=== PATIENT | male | born 1990 | race African-American/Black ===

== ENCOUNTER 2017-02-14 20:39 | Emergency (ER) | payer OTHER ==
[~2017-02-14] VITALS: Ht 177.8 cm; Wt 86.2 kg
[~2017-02-14 20:39] MED LIST: CARVEDILOL25 MG PO; COUMADIN 5 MG TA5 MG PO; HYDROXYCHLOROQ200 M1 PO; HYZAAR 50-12.51 EACH PO; IBUPROFEN 800800 MG PO; PREDNISONE 20 M20 MG PO
[2017-02-14 21:33] LABS: URINE BILIRUBIN NEGATIVE (Negative); URINE BLOOD 1+ (Negative); URINE COLOR YELLOW; URINE GLUCOSE-RANDOM* NEGATIVE (Negative); URINE KETONES NEGATIVE (Negative); URINE LEUKOCYTES-REFLEX 2+ (Negative); URINE PROTEIN (DIPSTICK) 3+ (Negative); URINE UROBILINOGEN 0.2 E.U./dl (0.2-1.0)
[2017-02-14 21:43] LABS: CASTS None Seen /LPF (None Seen); CRYSTALS None Seen /LPF (None Seen); SQUAMOUS None Seen /LPF (0-3); URINE RBC 0-2 Rare /HPF (0-2); URINE WBC-REFLEX >25 Many /HPF (0-5)
[2017-02-14 22:43] VITALS: BP 158/110
== END 2017-02-14 21:54 | disposition home or self-care (01) ==
LOC: ER 20:39
PROVIDERS: Physician Assistant
DX: Z20.2 Contact with and (suspected) exposure to infections with a predominantly sexual mode of transmission (principal); M32.9 Systemic lupus erythematosus, unspecified; Z86.711 Personal history of pulmonary embolism

== ENCOUNTER 2018-01-28 08:46 | Emergency (ER) | payer OTHER ==
[~2018-01-28] VITALS: Ht 177.8 cm; Wt 88.5 kg
[2018-01-28 08:56] LABS: URINE BILIRUBIN NEGATIVE (Negative); URINE BLOOD 1+ (Negative); URINE CLARITY CLEAR; URINE COLOR YELLOW; URINE GLUCOSE-RANDOM* NEGATIVE (Negative); URINE KETONES NEGATIVE (Negative); URINE LEUKOCYTES-REFLEX NEGATIVE (Negative); URINE NITRITE-REFLEX NEGATIVE (Negative); URINE PROTEIN (DIPSTICK) 2+ (Negative); URINE UROBILINOGEN 0.2 E.U./dl (0.2-1.0)
[2018-01-28] MEDS ORDERED: CELLCEPT 250 M250 M1 PO (08:59)
[2018-01-28 09:06] LABS: BACTERIA-REFLEX 1-9 Few /HPF (None Seen); CASTS None Seen /LPF (None Seen); CRYSTALS None Seen /LPF (None Seen); SQUAMOUS 0-3 Few /LPF (0-3); URINE RBC 3-10 Few /HPF (0-2); URINE WBC-REFLEX 0-5 Rare /HPF (0-5)
[2018-01-28] MEDS ORDERED: ACYCLOVIR 400400 MG PO (09:13)
[2018-01-28 09:20] VITALS: BP 180/121
[2018-01-31 18:07] LABS: HSV 1 DNA Negative (Negative); HSV 2 DNA Negative (Negative)
[2018-02-02 10:32] LABS: HSV PCR SOURCE PENIS
== END 2018-01-28 09:20 | disposition home or self-care (01) ==
LOC: ER 08:46
PROVIDERS: Emergency Medicine
DX: N48.89 Other specified disorders of penis (principal); M32.9 Systemic lupus erythematosus, unspecified; Z86.711 Personal history of pulmonary embolism

== ENCOUNTER 2018-03-03 14:25 | Emergency (ER) | payer OTHER ==
[~2018-03-03] VITALS: Ht 177.8 cm; Wt 88.5 kg
[~2018-03-03 14:25] MED LIST changes: +ACYCLOVIR 400400 MG PO; +CELLCEPT 250 M250 M1 PO
[2018-03-03] MEDS ORDERED: CARVEDILOL12.5 MG PO (15:23)
[2018-03-03 15:25] VITALS: BP 180/125
== END 2018-03-03 15:29 | disposition home or self-care (01) ==
LOC: ER 14:25
DX: N48.89 Other specified disorders of penis (principal); M32.9 Systemic lupus erythematosus, unspecified

== ENCOUNTER 2018-08-11 11:00 | Inpatient (IN) | payer OTHER, BC ==
[~2018-08-11] VITALS: Ht 177.8 cm; Wt 93.0 kg
[~2018-08-11 11:00] MED LIST changes: +CARVEDILOL12.5 MG PO
[2018-08-11 11:04] VITALS: BP 194/142
[2018-08-11] MEDS ORDERED: WARFARIN SODIUM6 MG PO (11:19)
[2018-08-11] MEDS ORDERED: NYSTATIN100000 UNI SW&SWALLOW (11:20)
[2018-08-11] MEDS ORDERED: VERAPAMIL E.R240 M1 PO (11:20)
[2018-08-11] MEDS ORDERED: HYDROXYCHLOROQ200 M1 PO (11:21)
--- NOTE | 2018-08-11 12:23 | NUR ---
PROVIDER AT BEDSIDE TO TALK WITH PT.
[2018-08-11 13:03] LABS: URINE BILIRUBIN NEGATIVE (Negative); URINE BLOOD 2+ (Negative); URINE CLARITY CLEAR; URINE COLOR YELLOW; URINE GLUCOSE-RANDOM* NEGATIVE (Negative); URINE KETONES NEGATIVE (Negative); URINE LEUKOCYTES-REFLEX NEGATIVE (Negative); URINE NITRITE-REFLEX NEGATIVE (Negative); URINE PROTEIN (DIPSTICK) 2+ (Negative); URINE UROBILINOGEN 0.2 E.U./dl (0.2-1.0)
[2018-08-11 13:18] LABS: HEMATOCRIT 56.9 % (42.0-52.0); HEMOGLOBIN 18.9 gm/dL (14.0-18.0); MCH 28.6 pg (26.0-34.0); MCHC 33.3 g/dL (28.0-37.0); MCV 86.1 fL (80.0-100.0); PLATELET COUNT 178 thou/uL (150-400); RBC 6.61 mil/uL (4.50-6.00)
[2018-08-11 13:22] LABS: CALCIUM 9.3 mg/dL (8.5-10.1); CREATININE 2.1 mg/dL (0.7-1.3); POTASSIUM 3.7 mmol/L (3.5-5.1)
[2018-08-11 13:23] LABS: CASTS None Seen /LPF (None Seen); CRYSTALS None Seen /LPF (None Seen); SQUAMOUS 0-3 Few /LPF (0-3)
[2018-08-11 13:24] LABS: BACTERIA-REFLEX 1-9 Few /HPF (None Seen); URINE WBC-REFLEX 0-5 Rare /HPF (0-5)
[2018-08-11 13:28] LABS: ALBUMIN 3.5 g/dL (3.4-5.0); TOTAL BILIRUBIN 0.3 mg/dL (<0.1-1.0); TOTAL PROTEIN 6.8 g/dL (6.4-8.2)
[2018-08-11 13:55] LABS: ABSOLUTE NEUTROPHILS 2.1 thou/uL (1.4-8.2)
[2018-08-11 14:35] LABS: AMP/METHAMP Negative (Negative); BARBITURATES Negative (Negative); BENZODIAZEPINES Negative (Negative); COCAINE Negative (Negative); METHADONE Negative (Negative); OPIATES POSITIVE (Negative); PCP Negative (Negative)
[2018-08-11 16:23] VITALS: BP 178/115
[2018-08-11 18:00] VITALS: BP 180/123
--- NOTE | 2018-08-11 18:44 | NUR ---
ADM PT CAME IN FROM ER. PT ORIENTED TO ROOM. ADM ORDERS CARRIED OUT.
[2018-08-11 19:24] VITALS: BP 151/92
[2018-08-11 23:55] LABS: URINE BILIRUBIN NEGATIVE (Negative); URINE BLOOD TRACE (Negative); URINE CLARITY CLEAR; URINE COLOR YELLOW; URINE GLUCOSE-RANDOM* NEGATIVE (Negative); URINE KETONES NEGATIVE (Negative); URINE LEUKOCYTES NEGATIVE (Negative); URINE NITRITE NEGATIVE (Negative); URINE PROTEIN (DIPSTICK) 1+ (Negative); URINE UROBILINOGEN 0.2 E.U./dl (0.2-1.0)
[2018-08-12 00:14] LABS: PROT/CREAT RATIO 0.3; URINE PROTEIN-RANDOM* 52.8 mg/dL (<11.9)
[2018-08-12 00:16] LABS: BACTERIA 1-9 Few /HPF (None Seen); CASTS None Seen /LPF (None Seen); MUCUS 0-3 Light strn/LPF (None Seen); SQUAMOUS 0-3 Few /LPF (0-3); URINE RBC 3-10 Few /HPF (0-2); URINE WBC 0-5 Rare /HPF (0-5)
[2018-08-12 00:17] LABS: CRYSTALS None Seen /LPF (None Seen)
[2018-08-12 01:52] VITALS: BP 169/92
[2018-08-12 03:57] VITALS: BP 135/85
[2018-08-12 05:23] LABS: HEMATOCRIT 54.4 % (42.0-52.0); HEMOGLOBIN 17.9 gm/dL (14.0-18.0); MCH 28.2 pg (26.0-34.0); MCHC 32.9 g/dL (28.0-37.0); MCV 85.6 fL (80.0-100.0); RBC 6.35 mil/uL (4.50-6.00); RDW 14.3 % (10.5-14.5); WBC 4.1 thou/uL (4.0-11.0)
[2018-08-12 05:32] LABS: PROTIME 51.2 Seconds (9.3-11.4)
[2018-08-12 05:34] LABS: CALCIUM 8.9 mg/dL (8.5-10.1); CREATININE 2.2 mg/dL (0.7-1.3); POTASSIUM 3.5 mmol/L (3.5-5.1)
[2018-08-12 06:55] VITALS: BP 173/104
--- NOTE | 2018-08-12 07:47 | NUR ---
PROGRESS PT A/O X4 UP AD JOSEPHINE VOIDING QS, NEPHROLOGY CONSULTED SPOT UA FOR PROTEIN AND CREATININE ORDERED AND OBTAINED FOR TO SEE PT IN AM. PT SLEPT ON AND OFF THROUGHOUT NIGHT REPORTED HEADACHE AROUND 4 AND TYLENOL GIVEN WITH EFFECT PT RESTING AFTER. SL TO LAC FLUSHES WITHOUT DIFFICULTY. CRITICAL INR OF 5 CHANEL JUAREZ NOTIFIED NO ORDERS RECEIVED, CONTINUE POC.
[2018-08-12 09:19] VITALS: BP 165/115
[2018-08-12 13:45] VITALS: BP 147/100
--- NOTE | 2018-08-12 18:37 | NUR ---
A/OX4, DENIES PAIN, MONITORING BP, DR MILES CONSULTED WITH EDUCATIONS TO SEE [facility] TO FOLLOW UP WITH DR ESTRELLA MEADE [facility]. NO NEW ORDER FROM DR MILES. CONTINUE TO MONITOR BP. PLANS TO DC TOMORROW. CALL LIGHT IN REACH.
[2018-08-12 20:15] VITALS: BP 143/73
[2018-08-13 04:51] VITALS: BP 147/95
[2018-08-13 06:09] LABS: HEMATOCRIT 55.8 % (42.0-52.0); HEMOGLOBIN 18.3 gm/dL (14.0-18.0); MCH 28.2 pg (26.0-34.0); MCHC 32.8 g/dL (28.0-37.0); MCV 85.9 fL (80.0-100.0); RBC 6.5 mil/uL (4.50-6.00); RDW 14.2 % (10.5-14.5); WBC 4.9 thou/uL (4.0-11.0)
[2018-08-13 06:16] LABS: CALCIUM 9.5 mg/dL (8.5-10.1); CREATININE 2.5 mg/dL (0.7-1.3); POTASSIUM 3.5 mmol/L (3.5-5.1)
--- NOTE | 2018-08-13 07:36 | HC ---
[facility] [place] [address] CONSULTATION Name: KEON CASILLAS Room #: 464-P ADM IN .R.#: [id number] Admission: 08/11/18 Attend Phys: Prateek Zazueta MD Discharge: Date of : 88 Report #: [id number] THIS REPORT FOR: //name// CC: Bhargav Zazueta DATE OF SERVICE: 08/12/2018 REASON FOR CONSULTATION: Elevated creatinine and history of lupus nephritis with uncontrolled hypertension. HISTORY OF PRESENT ILLNESS: This is a 28-year-old male who came to the Emergency Room yesterday, concerned about some potential ulcers in his mouth and a white coating on his tongue. During that evaluation, he was noted to be hypertensive and the blood pressure was very high as recorded in the EMR. He ended up getting admitted because of the hypertension. We are asked to see him as he has a history of lupus nephritis. I had a long conversation with the patient and gained the following information. He was diagnosed with systemic lupus erythematosus at age 18, which was 10 years ago. He presented originally with a facial rash, myalgias, arthralgias, pleuritis, and feeling poorly all over. Unfortunately, he does not remember any specifics of the details. Sometime within 2-3 years after that, he was diagnosed with lupus nephritis. He remembers having a kidney biopsy done and was followed at that time by Ezequiel Mccann of [facility]. He remembers getting at least one dose of IV cyclophosphamide, but does not recall a prolonged course of IV cyclophosphamide. He also remembers IV prednisone. He does not remember the class of lupus nephritis as designated by the World Health Organization. He was followed by Dr. Mccann until her mcc, which was about 2 years ago. He has not had regular nephrologic followup since that time. He does remember seeing Dr. Stallings also of [facility] when he has been an inpatient at [facility] and he had also seen Dr. Charles Mckeon at [facility], but has not had regular followup with either one of them. He has had significant hypertension, has been on multiple antihypertensive medications, but states his blood pressure has never controlled. Again, he has not sought consistent nephrologic followup. At some point along the line, he remembers having diffuse severe edema and being told he had nephrotic syndrome. He knows that some of his medications were changed, but again he is very sketchy on details. He reports no recent problems with edema. Also from a lupus standpoint, he has followed with Dr. Mike Alberto. He is currently on a regimen of some mycophenolate, which was increased about 5 months ago from 1000 mg b.i.d. to 1500 mg b.i.d. He is on prednisone 20 mg daily and also on some Plaquenil through Dr. Alberto. He does not exactly recall when he last saw Dr. Alberto or what Dr. Alberto has told him about the status of his lupus, activity of his labs, complements or other related lupus parameters. He has had previous history of DVT and pulmonary emboli. He does recognize that he has lupus [address] [address] CONSULTATION Name: ALYSSASALEEMKEON Wolf Room #: 464-P ADM IN .R.#: [id number] Admission: 08/11/18 Attend Phys: Prateek Zazueta MD Discharge: Date of : 88 Report #: [id number] anticoagulant and has been chronically on some warfarin anticoagulation. At this time, he reports no current symptoms. Blood pressure has been high as noted in the rest of this dictation. Labs are as noted above. PAST MEDICAL HISTORY: Mostly positive for the lupus and the lupus related findings as noted above with the lupus anticoagulant, chronic anticoagulation, hypertension, all as noted above. OPERATIONS AND PROCEDURES: Include a previous kidney biopsy. MEDICATIONS ON ADMISSION: Include warfarin 6 mg daily, verapamil 240 mg daily, carvedilol 12.5 mg b.i.d., losartan with hydrochlorothiazide 50/12.5 mg daily, prednisone 15 mg daily, mycophenolate 1500 mg b.i.d. and hydroxychloroquine 400 mg daily. ALLERGIES: No known medical allergies. SOCIAL HISTORY: The patient is . His actually came in the room is partway through our visit and actually asked more questions than he did. REVIEW OF SYSTEMS: Reports no recent problems with edema. Does not have dyspnea. Denies recent problems with pleuritic chest pain. Denies nausea or vomiting. Unaware of fevers, chills, sweats or recent skin rashes. No difficulty voiding urine. PHYSICAL EXAMINATION: GENERAL: A 28-year-old male, awake, alert and oriented. VITAL SIGNS: Most recent blood pressure 165/115, in the Emergency Room was as high as 162/118; heart rate 83; temperature 36.8; respiratory rate 18. HEENT: Unremarkable. Pupils are equal and reactive. I see no oral lesions. NECK: Supple without adenopathy, thyromegaly, JVD or bruit. CHEST: Clear bilaterally. BACK: Shows no CVA tenderness. HEART: Has a regular rate and rhythm. I hear no murmur, gallop or rub. ABDOMEN: Has active bowel sounds, is soft and nontender. EXTREMITIES: Show no peripheral edema. LABORATORY DATA: From this morning, sodium 141, potassium 3.5, chloride 105, bicarbonate 26, BUN 24, creatinine 2.2, glucose 91, calcium 8.9, total protein yesterday 6.8, albumin 3.5. White count 4.1, hemoglobin 17.9, hematocrit 54.4, platelets 188,000. Urinalysis: Specific gravity 1.020, pH 6.0, 2+ protein, 3-10 red cells, 0-5 white cells, no casts were noted. Spot urine protein creatinine ratio 0.3. ASSESSMENT: [facility] [address] [place] [address] CONSULTATION Name: SONJAKEON Wolf Room #: 464-P [facility] IN [facility].#: [id number] Admission: 08/11/18 Attend Phys: Prateek Zazueta MD Discharge: Date of : 88 Report #: [id number] 1. History of lupus nephritis. We are missing some critical data on this, mainly what the biopsy showed and what treatment he received. I do not think this is an active lupus nephritis at this time. His proteinuria is mild. His creatinine is near the level that he tells me it has been for some time. I did emphasize to him that it is important that he receive additional nephrologic followup. I would recommend to get back with [facility] as that was where he got his original biopsy and where his original treatment occurred, so they have all of his records. Obviously, he at this time is less than fully informed about what is going on with that, at least as far as what he is telling me today. Again, I have encouraged him to get back for regular followup from a nephrologic standpoint. 2. Hypertension, poor control. There is a plenty of room to increase his medications. We will double his losartan and double his carvedilol at this time. The rest of this will need to be done as an outpatient. He can continue on those medications. He can add a low sodium diet and hopefully get that under better control. 3. Systemic lupus erythematosus, chronically followed by Dr. Mike Alberto. He will need to follow up with Dr. Alberto, but it does not appear that he is having anything active at this time. 4. Lupus anticoagulant, needs to remain chronically on his warfarin therapy. PLAN: 1. I will double his losartan and double his carvedilol. This will be up to losartan 100 mg daily and carvedilol 25 mg b.i.d. 2. Continue his hydrochlorothiazide as well as his verapamil. 3. Okay to be discharged from a nephrologic standpoint. 4. He will need followup of his blood pressure as an outpatient. I have encouraged him to get back in with [facility] for a followup on that as well as his lupus nephritis. <ELECTRONICALLY SIGNED> By: Chance Orourke MD 08/13/18 0736 [id number] Chance Orourke MD /nt
[2018-08-13 08:44] VITALS: BP 154/108
[2018-08-13 09:51] VITALS: BP 154/108
--- NOTE | 2018-08-13 13:55 | NUR ---
ASSUMED CARE AT 0700. AXOX4. PT WAS SEEN BY FROM NEPHROLOGY AND , ATTENDING. PER ATTENDING MD, PT WILL D/C HOME TODAY D/T IMPROVEMENT ON BP. AWAITING D/C ORDERS.
[2018-08-13 14:06] LABS: HIV ANTIBODY Non Reactive (Non Reactive)
[2018-08-13] MEDS ORDERED: COZAAR100 MG PO (14:38)
[2018-08-13] MEDS ORDERED: CHLORTHALIDONE25 MG PO (14:39)
[2018-08-13 15:15] VITALS: BP 145/98
[2018-08-13 15:18] VITALS: BP 145/98
== END 2018-08-13 15:35 | disposition home or self-care (01) | DRG 682 ==
LOC: ER 11:00 → EROBS 14:16 → 4W 14:16
PROVIDERS: Internal Medicine Nephrology; Physician Assistant; ADMIT Hospitalist
DX: N17.9 Acute kidney failure, unspecified (principal); E43 Unspecified severe protein-calorie malnutrition; I16.1 Hypertensive emergency; I16.0 Hypertensive urgency; M32.9 Systemic lupus erythematosus, unspecified; N05.9 Unspecified nephritic syndrome with unspecified morphologic changes; M32.14 Glomerular disease in systemic lupus erythematosus; Z86.711 Personal history of pulmonary embolism; Z79.01 Long term (current) use of anticoagulants; Z79.899 Other long term (current) drug therapy
CPT/HCPCS: 10045

== ENCOUNTER 2018-10-26 20:29 | Emergency (ER) | payer OTHER, BC ==
[~2018-10-26] VITALS: Ht 177.8 cm; Wt 90.7 kg
[~2018-10-26 20:29] MED LIST changes: +CHLORTHALIDONE25 MG PO; +COZAAR100 MG PO; +NYSTATIN100000 UNI SW&SWALLOW; +VERAPAMIL E.R240 M1 PO; +WARFARIN SODIUM6 MG PO
[2018-10-26 21:19] LABS: URINE BILIRUBIN NEGATIVE (Negative); URINE BLOOD 2+ (Negative); URINE CLARITY CLEAR; URINE COLOR YELLOW; URINE GLUCOSE-RANDOM* NEGATIVE (Negative); URINE KETONES NEGATIVE (Negative); URINE NITRITE-REFLEX NEGATIVE (Negative); URINE PROTEIN (DIPSTICK) 2+ (Negative); URINE UROBILINOGEN 0.2 E.U./dl (0.2-1.0)
[2018-10-26 21:21] LABS: URINE LEUKOCYTES-REFLEX 1+ (Negative)
[2018-10-26 21:36] LABS: CASTS None Seen /LPF (None Seen); MUCUS 0-3 Light strn/LPF (None Seen); SQUAMOUS None Seen /LPF (0-3)
[2018-10-26 21:37] LABS: BACTERIA-REFLEX 1-9 Few /HPF (None Seen); CRYSTALS None Seen /LPF (None Seen); URINE RBC 3-10 Few /HPF (0-2)
[2018-10-26 22:22] VITALS: BP 190/132
== END 2018-10-26 22:20 | disposition home or self-care (01) ==
LOC: ER 20:29
PROVIDERS: Emergency Medicine
DX: N34.2 Other urethritis (principal); M32.14 Glomerular disease in systemic lupus erythematosus; I10 Essential (primary) hypertension

== ENCOUNTER 2019-09-09 08:23 | Emergency (ER) | payer OTHER ==
[~2019-09-09] VITALS: Ht 177.8 cm; Wt 97.5 kg
[2019-09-09] MEDS ORDERED: CLONIDINE HCL0.2 M2 PO (08:27)
[2019-09-09 09:39] LABS: ABSOLUTE NEUTROPHILS 7.6 thou/uL (1.4-8.2); BASOPHILS 0.5 % (0.0-2.0); EOSINOPHILS 0.4 % (0.0-3.0); HEMOGLOBIN 18.5 gm/dL (14.0-18.0); LYMPHOCYTES 9.1 % (24.0-44.0); MCH 28.9 pg (26.0-34.0); MCV 87.6 fL (80.0-100.0); MONOCYTES 9.3 % (1.0-8.0); PLATELET COUNT 157 thou/uL (150-400); POLYS 80.7 % (36.0-66.0); RBC 6.39 mil/uL (4.50-6.00); RDW 13.7 % (10.5-14.5); WBC 9.4 thou/uL (4.0-11.0)
[2019-09-09 09:51] LABS: CALCIUM 9.7 mg/dL (8.5-10.1); CREATININE 2.5 mg/dL (0.7-1.3)
[2019-09-09 10:19] LABS: INR 3.5; PROTIME 36.1 Seconds (9.3-11.4)
[2019-09-09] MEDS ORDERED: ZOFRAN ODT4 MG PO (12:17)
[2019-09-09] MEDS ORDERED: PROMETH-CODEIN 65 ML PO (12:17)
[2019-09-09] MEDS ORDERED: TAMIFLU75 MG PO (12:17)
[2019-09-09 12:24] VITALS: BP 190/137
== END 2019-09-09 12:25 | disposition home or self-care (01) ==
LOC: ER 08:23
PROVIDERS: Emergency Medicine
DX: J10.1 Influenza due to other identified influenza virus with other respiratory manifestations (principal); Z86.711 Personal history of pulmonary embolism

== ENCOUNTER 2020-01-08 15:39 | Inpatient (IN) | payer OTHER ==
[~2020-01-08] VITALS: Ht 180.3 cm; Wt 98.8 kg
[~2020-01-08 15:39] MED LIST changes: +CLONIDINE HCL0.2 M2 PO; +PROMETH-CODEIN 65 ML PO; +TAMIFLU75 MG PO; +ZOFRAN ODT4 MG PO
[2020-01-09] MEDS ORDERED: PREDNISONE 5 MG5 M1 PO (17:11)
[2020-01-09] MEDS ORDERED: PLAQUENIL200 MG PO (17:12)
[2020-01-09] MEDS ORDERED: MYCOPHENOLATE500 MG PO (17:13)
[2020-01-09] MEDS ORDERED: CARVEDILOL12.5 MG PO (17:13)
[2020-01-09] MEDS ORDERED: VERAPAMIL ER120 MG PO (17:14)
[2020-01-09] MEDS ORDERED: CLONIDINE HCL0.2 M2 PO (17:15)
[2020-01-09] MEDS ORDERED: DORYX MPC120 MG PO (17:16)
[2020-01-09] MEDS ORDERED: ELIQUIS5 MG PO (17:16)
[2020-01-09] MEDS ORDERED: NEURONTIN300 MG PO (17:17)
[2020-01-09] MEDS ORDERED: OXYCONTIN20 M1 PO (17:18)
[2020-01-09] MEDS ORDERED: PERCOCET 10-321 EAC1 PO (17:19)
--- NOTE | 2020-01-09 18:29 | NUR ---
PATIENT IS IN SEVERE PAIN UPON ADMISSION, AND DR. MEREDITH WAS NOTIFIED. PT STATED THAT THE NURSE AT [facility] WAS NOT ABLE TO GIVE HIM PAIN MEDS PRIOR TO HIS TRANSFER TO [facility] BECAUSE "IT WAS TOO EARLY TO GIVE IT." PT CRYING, RATING PAIN AT 10/10. ONLY MED AVAILABLE AT THIS TIME IS OXYCODONE 10 MG PO, AND THIS HAS BEEN GIVEN. PAGE PLACED TO MD TO INFORM OF PAIN OUTSIDE OF THE PAIN SCALE THAT WAS IN THE MEDICATION ORDER.
[2020-01-09 20:27] VITALS: BP 151/97
--- NOTE | 2020-01-09 21:13 | NUR ---
ASSUMED CARE OF PT AT 1700 WHEN PT BROUGHT TO UNIT BY PRIVATE TRANSPORT. RECEIVED REPORT FROM DANO HUNTER AT [facility] PRIOR TO TRANSPORT TO UNIT. PT IS A&OX4, ADMISSION VITAL SIGNS AND WEIGHT OBTAINED. MEDICATION REC COMPLETED, HOSPITALIST NOTIFIED OF ADMISSION. ADMISSION FORMS SIGNED. ADMISSION HX AND ASSESSMENT COMPLETED BY FELLOW NURSE. WOUND CARE TEAM ON UNIT AND APPLIED WOUND VAC AND COMPLETED WOUND CARE THIS SHIFT. PT REPORTED SIGNIFICANT PAIN TO LLE. PHARMACY AND HOSPITALIST NOTIFIED ABOUT PAIN CONCERNS. FALL PRECAUTIONS IN PLACE AND NURSING WILL CONTINUE TO [facility].
--- NOTE | 2020-01-09 22:52 | NUR ---
WOUND CARE NURSE ARRIVED TO PLACE WOUND VAC EARLIER THIS PM SOON AFTER ADMISSION AND PAIN MEDS GIVEN. MEASUREMENTS AND PHOTOS TAKEN, AND PAIN MEDS BEGAN TO TAKE EFFECT. PATIENT LATER AGAIN IN SEVERE PAIN, AND STRUCTURAL WELDER WAS NOTIFIED BY RN, AND ORDERS RECEIVED TO ALLOW Q 4 H FOR PRN BREAKTHROUGH MEDS. PT ASSISTED TO REPOSITION, AND IN BETTER SPIRITS THIS PM.
[2020-01-10 05:24] LABS: ABSOLUTE NEUTROPHILS 6.4 thou/uL (1.4-8.2); BASOPHILS 0.5 % (0.0-2.0); EOSINOPHILS 0.5 % (0.0-3.0); HEMATOCRIT 29.4 % (42.0-52.0); HEMOGLOBIN 9.2 gm/dL (14.0-18.0); LYMPHOCYTES 15.8 % (24.0-44.0); MCH 28.3 pg (26.0-34.0); MCHC 31.2 g/dL (28.0-37.0); MCV 90.7 fL (80.0-100.0); MONOCYTES 9.1 % (1.0-8.0); PLATELET COUNT 449 thou/uL (150-400); POLYS 74.1 % (36.0-66.0); RBC 3.25 mil/uL (4.50-6.00); RDW 17.2 % (10.5-14.5); WBC 8.6 thou/uL (4.0-11.0)
--- NOTE | 2020-01-10 05:26 | NUR ---
PATIENT STILL HAS PAIN 6-8, IMPROVEMENTS IN PAIN MANAGEMENT WITH PRN PERCOCET INTERVAL DECREASED FROM 6H TO 4H, ELEVATION OF LEG, WOUND VAC, AND REMOVAL OF BOOT. PATIENT INSISTED ON REMOVING BOOT BUT REQUESTED PILLOWS TO OFFLOAD HEEL AND OTHERS UNDER PLANTAR SURFACE TO STILL AVOID FOOT DROP. PATIENT TOLERATES DORSIFLEXION MORE THAN JUST TOUCHING THE TOP OF HIS FOOT. WE AGREE THAT STAYING "AHEAD" OF THE PAIN WILL BE OUR CURRENT PLAN.
[2020-01-10 06:30] LABS: ALBUMIN 2.2 g/dL (3.4-5.0); CALCIUM 9.1 mg/dL (8.5-10.1); CREATININE 1.8 mg/dL (0.7-1.3); MAGNESIUM 1.5 mg/dL (1.8-2.4); POTASSIUM 3.8 mmol/L (3.5-5.1); TOTAL BILIRUBIN 0.4 mg/dL (0.2-1.0); TOTAL PROTEIN 6.1 g/dL (6.4-8.2)
[2020-01-10 08:10] VITALS: BP 166/105
--- NOTE | 2020-01-10 12:00 | NUR ---
Nutrition: pt admitted to rehab unit following acute care stay, S/P left knee dislocation with popliteal artery injury. S/P emergent artery surgery and wound vac placement. Pt reports stable weights and good appetite, typically eats nearly all of meals. Denies offer of supplements. RD encouraged 100% intake of HBV protein sources on trays for wound healing. Voiced understanding. Also discussed meal ordering as desired. Low nutrition risk.
--- NOTE | 2020-01-10 15:37 | NUR ---
ASSUMED CARES AT 0700. PT AWAKE, ALERT AND ORIENTED*4. C/O PAIN LLE 10/10, PAIN MEDICATION, BACLOFEN AND GABAPENTIN ADMINISTERED NEEDED AND PER ORDER. BP ELEVATED THIS AM, BP LOWERING MEDS ADMINISTERED PER ORDER. HR ELEVATED R/T SEVERE PAIN, STABLE AFTER PAIN WAS MANAGED. EXTERNAL FIXATOR ON LLE REMAINS INTACT, PIN SITES CLEANED AND DRESSING CHANGED. WOUND VAC REMAINS INTACT AND PATENT. LLE REMAINS NWB. PT UP WITH 1 MOD ASSIST, GB AND WALKER. UNABLE TO PARTICIPATE WELL IN THERAPY R/T PAIN. Q1H VISUAL CHECKS. CALL LIGHT WITHIN REACH. FALL PRECAUTIONS IN PLACE
[2020-01-10 19:35] VITALS: BP 154/86
--- NOTE | 2020-01-11 01:00 | NUR ---
PT ALERT AND ORIENTED X 4. LEFT LEG WOUND VAC INTACT. LEFT EXTERNAL FIXATOR INTACT. DRESSINGS AROUND PINS C/D/I. VOIDING ADEQUATE AMTS CLEAR YELLOW URINE PER URINAL. PT C/O PAIN IN LLE. OXYCODONE AND BACLOFEN GIVEN X 1 PER PT REQUEST. ALSO REQUESTED BENADRYL. PT REQUESTED THAT THESE THREE MEDS BE GIVEN TOGETHER. BED ALARM ON FOR SAFETY. PT APPEARS TO BE SLEEPING ON HOURLY ROUNDS. PT DIAPHORETIC AT TIMES.
[2020-01-11 08:19] VITALS: BP 151/100
--- NOTE | 2020-01-11 15:41 | NUR ---
ASSUMED CARE AROUND 0700 PT A&O X 4 NO ACUTE DISTREDD NOTED VSS O2 ON RA. PAIN CONTROLLED WITH ZACHARY OXYCINTIN AND PRN PERC. NON WEIGHT BEARING TO LLEG WOUND VAC IN PLACE MINIMAL DRAINAGE DRESSING INTACT. DRESSING CHANGED TO EXTERNAL FIXATOR PINS PER ORDERS. CONTINENT OF B&B USES URINAL. PARTICIPATED IN ZACHARY THERAPIES RESTING IN BED, CALL LIGHT WITHIN REACH, WILL CONTINUE TO MONITOR PER POC.
[2020-01-11 19:55] VITALS: BP 137/75
--- NOTE | 2020-01-12 00:53 | NUR ---
PT ALERT AND ORIENTED X 4. LLE EXTERNAL FIXATOR AND WOUND VAC INTACT. PT C/O PAIN IN LLE. OXYCODONE GIVEN ORDERED. BED ALARM ON FOR SAFETY. PT APPEARS TO BE SLEEPING ON HOURLY ROUNDS.
[2020-01-12 07:56] VITALS: BP 147/86
--- NOTE | 2020-01-12 15:06 | NUR ---
ASSUMED CARE AROUND 0700 PT A&O X 4 NO ACUTE DISTRESS NOTED. VSS O2 ON RA. PAIN CONTROLLED WITH ZACHARY OXYCINTIN AND PRN PERC. WOUND VAC IN PLACE MINIMAL DRAINAGE NOTED. DRESSINGS TO LLE IN PLACE C/D/I.NWB TO LLE CONTINUED PT CONTINENT USES URINAL/BR. RESTING IN BED CALL LIGHT WITHIN REACH WILL CONTINUE TO MONITOR PER POC.
[2020-01-12 20:49] VITALS: BP 131/77
--- NOTE | 2020-01-13 04:06 | NUR ---
ASSUMED PT CARE AT APPROX 1900.PT C/O PAIN ON HIS LLE,MANAGED WITH ZACHARY AND PRN MED.PT UP WITH ASSIST AND WALKER TO THE TOILET.NWB MAINTAINED TO HIS LLE.DRSG ON HIS LLE C/D/I NO DRAINAGE NOTED.URINAL AT BESIDE WITH GOOD OUTPUT.WOUND VAC TO LLE WITH MIN DRAINAGE.NO BM SO FAR.PT SLEEPING ON HIS BED AT THIS TIME.FALL PRECAUTIONS MAINTAINED.HOURLY ROUNDS MAINATINED.
[2020-01-13 06:00] VITALS: BP 132/76
--- NOTE | 2020-01-13 08:00 | HC ---
[facility] [place] [address] CONSULTATION Name: KEON CASILLAS Room #: 506-1 ADM IN M.R.#: [id number] Admission: 01/09/20 Attend Phys: Iggy Saavedra MD Discharge: Date of : 89 Report #: [id number] THIS REPORT FOR: cc: FAM - Family physician unknown FAM - Family physician unknown Melo Muniz MD ~ CC: Iggy HURD unknown DATE OF SERVICE: 01/09/2020 CHIEF COMPLAINT: Surgical wounds to the left lower extremity. HISTORY OF PRESENT ILLNESS: This is a 29-year-old male patient who was admitted to [facility] on 12/20/2019. He was jumping on a trampoline, developed severe knee pain while jumping, was found to have a dislocation of the knee. This was reduced, but he had numbness and decreased pulse, was noted to have a popliteal artery injury and likely femoral condyle fracture. He had emergent surgery for repair of the popliteal artery and then developed compartment syndrome and on 01/03/2020, underwent fasciotomy and wound exploration. He has had delayed primary closure. He has had an external fixator applied. He has an open wound to the popliteal fossa that has been managed with a wound VAC and I have been asked to see him with regard to wound care. PAST MEDICAL HISTORY: Other than the injuries just sustained above is positive for history of lupus with complications of lupus nephritis. He has a history of pulmonary embolus and is currently on Eliquis for this. He is having severe pain in his left foot and in particular his toes. ALLERGIES: No known drug allergies. MEDICATIONS: Include losartan, Tamiflu, Zofran, promethazine, gabapentin, doxycycline, Eliquis, clonidine, Coreg, mycophenolate, Plaquenil, prednisone, verapamil, OxyContin, Percocet. SOCIAL HISTORY: Positive for the fact he is . He has 2 children, ages 6 and 11. 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 He admits to occasional alcohol consumption. No history of tobacco or drug use. FAMILY HISTORY: Noncontributory. REVIEW OF SYSTEMS: CONSTITUTIONAL: The patient denies fever, chills or weight loss. NEUROLOGICAL: The patient has severe pain and some weakness with a foot drop on [address] [address] CONSULTATION Name: KEON CASILLAS Room #: 506-[address] [facility].#: [id number] Admission: 01/09/20 Attend Phys: Iggy Saavedra MD Discharge: Date of : 89 Report #: [id number] the left side. ENT: The patient denies earache, nasal drainage or sore throat. EYES: The patient denies any visual changes, redness or drainage. CARDIOVASCULAR: The patient denies chest pain, palpitations or diaphoresis. PULMONARY: The patient denies cough or shortness of breath. GASTROINTESTINAL: The patient denies nausea, vomiting, diarrhea or abdominal pain. ORTHOPEDIC: The patient complains of severe pain with the external fixator. The pain is worsened in the lower leg and foot and toes. He feels as if his toes are going to "explode" with a throbbing component to this. He states that narcotics are not very helpful for pain control, although would make it more tolerable. Other systems in a 14-point review of systems are negative. PHYSICAL EXAMINATION: VITAL SIGNS: At this time include temperature of 98.9, pulse rate 98, respiratory rate of 18, blood pressure 151/97. GENERAL: This is a well-developed male patient who appears to be in moderate distress. HEENT: Head normocephalic. Nose and throat are clear. NECK: Supple. LUNGS: Clear. HEART: Regular. ABDOMEN: Soft. Bowel sounds are present. EXTREMITIES: Lower extremities demonstrate an external fixator with pin sites in both femur and tibia. There is an open wound to the posterior knee in the popliteal fossa. It is relatively healthy, clean and granulating with a little bit of fibrous tissue exposed. I do not see any bony tissue exposed. The pin sites are a little bit eroded and crusty, but not overtly infected. The patient has an obvious foot drop and he has hyperesthesia to the foot and toes. LABORATORY STUDIES: Include sodium 138, potassium 3.9, chloride 104, CO2 of 25, BUN 35, creatinine 1.8, glucose of 89, albumin 2.2, total protein 6.1. White blood cell count 8.0 with a hemoglobin of 9.2. CLINICAL IMPRESSION: 1. Surgical wound to the posterior left knee following exploratory surgery and repair of popliteal artery injury following a left knee dislocation. 2. Left knee dislocation. 3. Femoral condyle fracture. 4. External fixator of the left lower extremity in place. 5. Left lower extremity foot drop and hyperesthesia. 6. Severe pain following a compartment syndrome, suspect complex regional pain syndrome. RECOMMENDATIONS: At this point in time, a wound VAC has been reapplied at the [address] [address] CONSULTATION Name: KEON CASILLAS Room #: 506-1 ADM IN Manoj#: [id number] Admission: 01/09/20 Attend Phys: Iggy Saavedra MD Discharge: Date of : 89 Report #: [id number] bedside this evening to the posterior knee area. We will leave this in place until Monday. We will use 125 mmHg black foam in continuous suction. Recommend pin care with diluted hydrogen peroxide, gentamicin ointment, Xeroform daily. With regard to the left foot drop and severe pain, the patient is currently on gabapentin. He may need additional management of the neuropathic pain and may be amenable to regional blocks; however, would suggest a pain management evaluation if possible while he is here in the hospital. I appreciate being asked to see the patient in consultation. We will continue to follow him here in the hospital carefully. <ELECTRONICALLY SIGNED> By: Melo Muniz MD 01/13/20 0800 [id number] Melo Muniz MD /nt
--- NOTE | 2020-01-13 11:53 | NUR ---
new order for wc when dc, possible on . cm visited with pt at bedside with own personal face mask on. education on dc planning. independent prior to hospital. no dme prior to hospital. ok with need for wc at dc for mobility and his nwb status. no steps at home, no steps to enter and no steps inside. all on one level. wheel chair from anywhere insurance accepts. cm sent referral to [facility]. order sent to [facility]. will cont following as needed for dc needs.
--- NOTE | 2020-01-13 17:28 | NUR ---
ASSUMED CARE AT 1500. PATIENT IS A & 0 4. PATIENT HAS WOUND VAC TO HIS LEFT FEM-POP AREA OF HIS LOWER EXTREMITY. PATIENT IS NON WT BEARING TO HIS LEFT LOWER EXTREMITY. UP WITH WALKER TO W/C. HERB COUNSELOR TO FIT WITH OTHER TYPE OF SHOE ON THE LEFT. UP IN BED FOR MEALS. FALL AND SAFETY PROTOCOLS IN PLACE. C/O PAIN IN HIS LEFT LOWER EXTREMITY. MEDICATED WITH PRN PAIN MED. CONTINUES TO PROGRESS TOWARDS D/C GOALS. WILL CONTINUE TO MONITER.
[2020-01-13 18:52] VITALS: BP 133/84
--- NOTE | 2020-01-14 01:59 | NUR ---
PT ALERT AND ORIENTED X 4. LLE EXTERNAL FIXATOR AND WOUND VAC INTACT. PT C/O PAIN IN LLE. BACLOFEN, OXYCODONE AND BENADRYL GIVEN AND PT SLEEPING UPON REASSESSMENT. BED ALARM ON FOR SAFETY. PT APPEARS TO BE SLEEPING ON HOURLY ROUNDS.
[2020-01-14 08:00] VITALS: BP 161/95
--- NOTE | 2020-01-14 08:28 | NUR ---
PT LYING IN BED AT THIS TIME. PT STATED PAIN TO LEFT LEG IS 8 ON 1-10 SCALE. PT HAS WOUND VAC AND PINS TO LEFT LE. DRESSINGS ARE INTACT. PT IS NWB TO LEFT LE. PEDAL PULSE TO LEFT FOOT +2. PT USES URINAL TO VOID. LBM 07/05. PT HAS SPECIAL SHOE TO LEFT FOOT. LUNGS CLEAR. BED ALARM IS ON.
--- NOTE | 2020-01-14 12:21 | NUR ---
team meeting, recommendation: dc on with wc and will be delivered prior to dc. home health ( pt, ot, and nursing). roommate to assist if needed when goes home. foot drop brace on order.
--- NOTE | 2020-01-14 19:10 | NUR ---
ASSUMED CARE AROUND 1515, A&O X 4 NO ACUTE DISTRESS DURING SHIFT. NO ACUTE DISTRESS NOTED. VSS, O2 ON RA. RECEIVED PRN PERCOCET FOR LLE PAIN. DRESSINGS CHANGED TO LLE, WOUND VAC IN PLACE, DRESSINGS C/D/I. PT RESTING IN BED, CALL LIGHT WITHIN REACH, WILL CONTINUE TO MONITOR PER POC.
[2020-01-14 19:24] VITALS: BP 140/76
--- NOTE | 2020-01-14 22:20 | NUR ---
PT ALERT AND ORIENTED X 4. LLE EXTERNAL FIXATOR AND WOUND VAC INTACT. PT C/O PAIN IN LLE. PAIN MEDS GIVEN ORDERED. PT VERBALIZES ADEQUATE PAIN RELIEF. DRESSINGS TO LLE C/D/I. BED ALARM ON FOR SAFETY. PT CHECKED ON HOURLY ROUNDS.
[2020-01-15 07:53] VITALS: BP 158/91
--- NOTE | 2020-01-15 09:11 | NUR ---
ASSUMED CARE AT 0700. PATIENT IS ALERT AND ORIENTED X4. PATIENT DANIELLE'S, LEAN MANUFACTURING SPECIALIST ARE EQUAL. LUNGS ARE CLEAR AND DEMINISHED. ABD IS SOFT WITH BSX4. VOIDNG PER URINAL PAUL COLORED URINE. PATIENT HAS WOUND TO UPPER THIGH. DRESSING CHANGED. WOUND VAC TO BE CHANGED BY WOUND CARE TEAM LATER TODAY. PATIENT ATE ABOUT 25% OF BREAKFAST. YOGURT AND EXTRA JUICE GIVEN. REVIEWED WITH PATIENT THAT HE IS ON REGULAR DIET AND CAN ORDER OFF THE BACK MENU. FALL AND SAFETY PROTOCOL IN PLACE. C/O PAIN IN HIS LEFT LEG. MEDICATED WITH SCED PAIN MED. CONTINUES TO PROGRESS TOWARDS D/C GOALS. PLAN IS FOR D/C ON . WILL CONTINUE TO MONITER.
--- NOTE | 2020-01-15 12:02 | HC ---
[facility] Dennys Arriaza [place] [address] CONSULTATION Name: KEON CASILLAS Room #: 506-1 ADM IN M.R.#: [id number] Admission: 01/09/20 Attend Phys: Iggy Saavedra MD Discharge: Date of : 88 Report #: [id number] THIS REPORT FOR: cc: VANNESSA - Family physician unknown VANNESSA - Family physician unknown Bashir Guan MD ~ CC: Iggy HURD unknown DATE OF SERVICE: 01/10/2020 CONSULTING PHYSICIAN: Dr. Guan. REASON FOR CONSULTATION: Left lower extremity wounds. ASSESSMENT: 1. Open left knee dislocation with posterior knee fossa wound. 2. Left lower extremity compartment syndrome, status post fasciotomy with delayed primary closure of fasciotomy incisions. 3. Popliteal artery injury, status post repair. 4. Lupus. 5. Acute renal failure on chronic kidney disease. 6. History of pulmonary embolism, on anticoagulation. 7. Hypertension. RECOMMENDATIONS: 1. Thank you for the consultation. I will follow along. 2. Recommend wound VAC change Monday, Monday and Monday or scheduled otherwise through wound team preferences. Appreciate assistance. 3. Change left lower extremity fasciotomy incision dressings daily. HISTORY OF PRESENT ILLNESS: The patient is a very pleasant 29-year-old gentleman with lupus, on immunosuppressants and with a history of PE, on anticoagulation, who suffered a traumatic open left knee dislocation with popliteal artery injury on 12/20/2019. The patient underwent emergent popliteal artery repair. Following that, on 12/24/2019, he underwent emergency fasciotomy of the left lower extremity for compartment syndrome. The patient also had an external fixator placed for his unstable knee injury. He was taken back to the operating room on 12/30 and 01/02 for placement of dermal closure device and delayed primary closure Accordingly, the patient received Orthopedic, Vascular Surgery, Medicine and Nephrology consults while in the hospital for management of his traumatic injuries and ongoing comorbidities. The patient worked with Physical Therapy and inpatient rehab was recommended. PAST MEDICAL HISTORY: 1. History of PE. [address] [address] CONSULTATION Name: SONJAKEON Wolf Room #: 506-1 [facility] IN ..#: [id number] Admission: 01/09/20 Attend Phys: Iggy Saavedra MD Discharge: Date of : 89 Report #: [id number] 2. Lupus. 3. Hypertension. PAST SURGICAL HISTORY: Left lower extremity surgeries as above, otherwise denies. SOCIAL HISTORY: Denies alcohol, tobacco or recreational drugs. FAMILY HISTORY: Denies. REVIEW OF SYSTEMS: CONSTITUTIONAL: No fever. No chills. HEENT: Denies blurring of vision, double vision, headaches, hearing loss, sinus drainage or sore throat. Denies blurring of vision, double vision, headaches, hearing loss, sinus drainage or sore throat. CARDIOVASCULAR: Denies chest pain, palpitations, orthopnea or paroxysmal nocturnal dyspnea. RESPIRATORY: Denies cough, wheezing, hemoptysis, or shortness of air. GASTROINTESTINAL: No nausea. No vomiting. No diarrhea. No Heartburn. No nausea. No vomiting. No diarrhea. No Heartburn. GENITOURINARY: Denies dysuria or hematuria or kidney stones. No urinary frequency, urgency or incontinence. Denies dysuria or hematuria or kidney stones. No urinary frequency, urgency or incontinence. MUSCULOSKELETAL: See above and below. NEUROLOGICAL: Denies tremor, stroke or seizure. Denies tremor, stroke or seizure. HEMATOLOGIC / LYMPHATICS: Denies easy bruising, easy bleeding or enlarged lymph nodes. SKIN: No rash or ulceration. ENDOCRINE: No heat or cold intolerance PSYCHIATRIC: Denies depression, anxiety, or schizophrenia. PHYSICAL EXAMINATION: GENERAL: No apparent distress, alert and oriented x3. HEENT: PERRLA, EOMI, MMM, NCAT NECK: Supple. No LAD CARDIOVASCULAR: Regular rhythm and rate. Hemodynamically stable. Normal capillary refill. Regular rhythm and rate. Hemodynamically stable. Normal capillary refill. PULMONARY: Nonlabored. Clear to auscultation bilaterally ABDOMEN: Soft, nontender to palpation, no guarding, no rigidity, no rebound tenderness, no hernias. EXTREMITIES: Left lower extremity, an external fixator wound VAC in place with good seal. Left lower extremity fasciotomy incisions are wrapped with clean dressings. SKIN: No rashes or bruises. [address] [address] CONSULTATION Name: KEON CASILLAS Wolf Room #: 506-1 ADM IN M.R.#: [id number] Admission: 01/09/20 Attend Phys: Iggy Saavedra MD Discharge: Date of : 89 Report #: [id number] PSYCHIATRIC: Normal mood and affect Normal mood and affect NEUROLOGICAL: Grossly intact. CN II-XII grossly intact. MUSCULOSKELETAL: 5/5 strength in upper extremities and lower extremities bilaterally LYMPHATICS: No cervical, inguinal, or supraclavicular lymphadenopathy. <ELECTRONICALLY SIGNED> By: Bashir Guan MD 01/15/20 1202 1949 11 Bashir Guan MD /nt
--- NOTE | 2020-01-15 12:17 | NUR ---
referral faxed to sunita elise, unable to accept rt at [facility] for . faxed to saqib
[2020-01-15 19:23] VITALS: BP 140/80
[2020-01-16 06:04] LABS: ABSOLUTE NEUTROPHILS 2.9 thou/uL (1.4-8.2); BASOPHILS 0.5 % (0.0-2.0); HEMOGLOBIN 10.3 gm/dL (14.0-18.0); LYMPHOCYTES 27.8 % (24.0-44.0); MCH 27.9 pg (26.0-34.0); MCHC 31.1 g/dL (28.0-37.0); MCV 89.8 fL (80.0-100.0); MONOCYTES 9.7 % (1.0-8.0); PLATELET COUNT 318 thou/uL (150-400); RBC 3.67 mil/uL (4.50-6.00); RDW 17.4 % (10.5-14.5); WBC 4.8 thou/uL (4.0-11.0)
[2020-01-16 06:21] LABS: CALCIUM 9.2 mg/dL (8.5-10.1); CREATININE 1.8 mg/dL (0.7-1.3); MAGNESIUM 1.6 mg/dL (1.8-2.4); POTASSIUM 3.9 mmol/L (3.5-5.1)
[2020-01-16 08:00] VITALS: BP 139/92
[2020-01-16] MEDS ORDERED: NEURONTIN 300M300 M2 PO (08:12)
[2020-01-16] MEDS ORDERED: COLACE100 MG PO (08:12)
[2020-01-16] MEDS ORDERED: NEURONTIN600 MG PO (08:12)
--- NOTE | 2020-01-16 08:29 | NUR ---
spoke with harry at [facility], they can accept for hh needs for today dc home, wound vac, wheel chair to be sent home with taniya.
[2020-01-16 08:31] VITALS: BP 140/80
--- NOTE | 2020-01-16 08:43 | NUR ---
ASSUMED CARE AT 0700. PATIENT IS ALERT AND ORIENTEDX4. PATIENT DANIELLE'S, SCIENTIFIC INFORMATICS PROJECT LEADER ARE EQUAL. LUNGS ARE CLEAR AND DEMINISHED. ABD IS SOFT WITH BSX4. PATIENT HAS EXTERNAL FIXATOR AND WOUND VAC TO LEFT LEG. PATIENT IS VOIDING PAUL COLORED URINE PER URINAL. UP IN BED FOR MEALS. FALL AND SAFETY PROTOCOLS IN PLACE. C/O PAIN IN HIS LEFT LOWER LEG. MEDICATED WITH PRN PAIN MED. CONTINUES TO PROGRESS TOWARDS D/C GOALS. HOME WOUND VAC CHANGED BY WOUND CARE TREJORDAN. WILL CONTINUE TO MONITER.
[2020-01-16] MEDS ORDERED: PERCOCET 10-321 EACH PO (08:47)
[2020-01-16] MEDS ORDERED: BACLOFEN 10MG T10 MG PO (09:22)
[2020-01-16 09:34] VITALS: BP 140/80
--- NOTE | 2020-01-16 11:25 | NUR ---
D/C INSTRUCTIONS GIVEN TO PATIENT . PATIENT VERBALIZED UNDERSTANDING OF D/C INSTRUCTIONS. PATIENT LEFT WITH ALL OF HIS BELONGINGS , CELL PHONE AND NARCOTIC SCRIPT. PATIENT TRANSFERED FROM W/C TO CARE WITH WALKER WITH MINIMAL ASSIST. WOUND VAC FOR HOME USE SENT WITH PATIENT ATTACHED. [facility] TO / IN A.M. TO CHANGE DRESSING TO WOUND VAC.
--- NOTE | 2020-01-16 16:00 | NUR ---
PT DISCHARGED TODAY TO HOME WITH [facility] FAXED DC ORDERS/SUMMARY RECEIVED CONFIRMATION AND SPOKE WITH PEGGY IN ADM SHE WILL NOTIFY PT TIME OF VISITS.
[2020-01-17] MEDS ORDERED: ELIQUIS5 MG PO (10:13)
--- NOTE | 2020-01-18 11:37 | HC ---
[facility] [place] [address] CONSULTATION Name: KEON CASILLAS Room #: 506-1 [facility] IN M.R.#: [id number] Admission: 01/09/20 Attend Phys: Iggy Saavedra MD Discharge: 01/16/20 Date of : 89 Report #: [id number] THIS REPORT FOR: cc: VANNESSA - Family physician unknown VANNESSA - Family physician unknown Ad Mazariegos PhD ~ CC: Iggy HURD unknown DATE OF SERVICE: 01/12/2020 PSYCHOLOGICAL CONSULTATION ATTENDING PHYSICIAN: Iggy Saavedra MD. FOOD AND NUTRITION SERVICES ASSISTANT: Ad Mazariegos, PhD CLINICAL PRESENTATION: The patient is a 29-year-old male admitted to the rehabilitation unit at [facility] for a comprehensive inpatient rehabilitation program. The patient was initially admitted to the hospital with a left knee dislocation and popliteal artery injury. He was jumping on a trampoline at his 11-year-old child's birthday libertarian when he experienced sudden left knee pain and severe bleed. The patient was found to have a dislocation and the knee was reduced, but he had numbness and decreased pulse. Left popliteal artery injury was identified. He had emergency surgery for the popliteal artery on 12/21/2019 and on 01/03/2020 underwent a left lower extremity fasciotomy, wound exploration with delayed primary closure, external fixator and wound VAC applied. He was also treated for UTI. The patient reportedly has a history of treatment for lupus and is on Coumadin. His diagnosis on admission to the rehab unit is medical complexity with generalized debilitation; left popliteal artery injury, status post repair with wound VAC; left leg fracture, status post external fixator; nonweightbearing left lower extremity; left foot compartment syndrome, status post fasciotomy; question of complex regional pain syndrome; lupus nephritis; history of pulmonary embolism, on anticoagulation and hypertension. A complete description of his medical condition and history can be found in his medical record. Psychological consultation was requested to provide assistance in the assessment of emotional status and provide psychological services as needed. Prior to this most recent admission, the patient was living independently in his own home with a roommate. He is a high school graduate with a 2-year associate degree. 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 He has 2 children. He is . He was with his ex- jumping on the trampoline when this accident occurred. She is a nurse and was able to apply pressure to help reduce [address] [address] CONSULTATION Name: KEON CASILLAS Room #: 506-1 [facility] IN [facility]#: [id number] Admission: 01/09/20 Attend Phys: Iggy Saavedra MD Discharge: 01/16/20 Date of : 88 Report #: [id number] bleeding. TECHNIQUES UTILIZED: Clinical interview, review of medical records, staff consultation and behavioral observation, mini mental status exam 2 standard version and clock drawing. EXAMINATION FINDINGS: The patient was alert and cooperative with the assessment. He accurately described events surrounding his admission. There is no evidence of aphasia. His thoughts are logical and goal oriented. There is no evidence of thought disorder. He does not report auditory or visual hallucinations. The patient does not describe flashbacks or images of the accident during the day. He also does not report having had nightmares. His current experiences described as having increased anxiety and depression. Longstanding difficulty with sleep is noted. It continues to be a problem. He does not report difficulty with memory or appetite. Energy level was described as within normal limits. He does not report a prior history of treatment for anxiety or depression. Performance on the mini mental status exam 2 standard version is within normal limits with a raw score of 30/30. He is alert and oriented, without showing difficulty with attention/concentration or immediate recall. Clock drawing was within normal limits. The patient is primarily presenting with anxiety and depression, likely as an adjustment to trauma leading to his hospitalization. DIAGNOSTIC IMPRESSION: Adjustment disorder with anxiety and depressed mood. RECOMMENDATIONS: The patient does not describe any symptoms of PTSD at this time. He may benefit from the use of relaxation strategies along with behavioral pain management to assist in his adjustment and management of current pain. I will meet with him while on the unit to assist with the development of relaxation techniques, which should be applied during his therapies. The patient may require outpatient psychotherapy to assist in overall adjustment. He is not interested in the use of medications at this time. Thank you very much for allowing me to provide the consultation on this patient. <ELECTRONICALLY SIGNED> By: Ad Mazariegos, PhD 01/18/20 1137 [id number] Ad Mazariegos, PhD /nt
--- NOTE | 2020-01-21 09:33 | H ---
[facility] [place] [address] HISTORY AND PHYSICAL Name: KEON CASILLAS Room #: 506-1 [facility] IN ..#: [id number] Admission: 01/09/20 Attend Phys: Iggy Saavedra MD Discharge: 01/16/20 Date of : 89 Report #: [id number] THIS REPORT FOR: cc: VANNESSA - Family physician unknown FAM - Family physician unknown Iggy Saavedra MD ~ CC: Iggy HURD unknown DATE OF SERVICE: 01/09/2020 HISTORY AND PHYSICAL/POSTADMISSION PHYSICIAN EVALUATION HISTORY OF PRESENT ILLNESS: The patient has been admitted for acute in-hospital inpatient rehabilitation. Please see the full history and physical documentation. He is a 29-year-old -Mongolian male who was jumping on a trampoline when he had sudden knee pain, was noted to have a left knee dislocation with popliteal artery injury. The knee was reduced, but with a decreased pulse. CTA revealed left popliteal artery injury, any indentation of the lateral femoral condyle consistent with impaction fracture. He had emergency surgery for the popliteal artery and then on 01/03/2020, he had a left lower extremity fasciotomy wound exploration with delayed primary closure, external fixator and wound VAC applied. He was also treated for urinary tract infection. The patient was admitted from an outside hospital for acute in-hospital inpatient rehabilitation. PAST MEDICAL HISTORY: Prior history includes lupus nephritis, hx of being on Eliquis for pulmonary embolism. MEDICATIONS: Please see the full medication listing. ALLERGIES: No known drug allergies. SOCIAL HISTORY: As documented. HABITS: As noted. REVIEW OF SYSTEMS: No current complaints of chest pain, shortness of breath or abdominal discomfort. He has left leg discomfort, but does not appear to be in significant distress at the current time. PHYSICAL EXAMINATION: GENERAL: A 29-year-old -Mongolian male, in no obvious distress. Vitals are as noted. HEENT: Facies appeared symmetric. CHEST: Sounded clear to auscultation. CARDIOVASCULAR: Regular rate and rhythm. [address] [address] HISTORY AND PHYSICAL Name: KEON CASILLAS Room #: 506-1 [facility] IN ..#: [id number] Admission: 01/09/20 Attend Phys: Iggy Saavedra MD Discharge: 01/16/20 Date of : 89 Report #: [id number] ABDOMEN: Bowel sounds positive, nontender. GENITOURINARY AND RECTAL: Deferred. EXTREMITIES: He has good strength bilateral upper extremities with functional range of motion. Left lower extremity, the external fixator is in place, wound VAC, slight edema of the foot. He can wiggle his left toes. SKIN: Sensitive to light touch. He has been min assist coming to stand, mod assist 15 feet front-wheeled walker. Left calf is supple. No obvious palpable cord. He appears to have good perfusion of his distal left lower extremity. ASSESSMENT: 1. Medical complex with generalized debilitation. 2. Left popliteal artery injury, status post repair with wound VAC. 3. Left leg fracture, status post external fixator nonweightbearing, left lower extremity. 4. Left foot compartment syndrome, status post fasciotomy, 01/03/2020. 5. Question of complex regional pain syndrome. 6. Lupus nephritis. 7. History of pulmonary embolism, on anticoagulation. 8. Hypertension. PLAN: The patient has been admitted for acute in-hospital inpatient rehabilitation. From a postadmission physician evaluation perspective, there are no relevant changes since the preadmission screening. Please see the above review of prior and current medical and functional conditions and comorbidities. Please see the patient's previous and current functional status. As far as risk of complications, the patient has multiple medical comorbidities as noted above. Initial plan of care involves the interdisciplinary acute inpatient rehabilitation program. Measurable functional goals would be for the patient to become modified independent, nonweightbearing on that left lower extremity, so that he can hopefully return back to the home setting. He does live there with a roommate who is currently home with the COVID pandemic. His prognosis is reasonably good with estimated length of stay probably at least 10 days to 2 weeks. We will need to see how he does. Potential barriers would include his above medical comorbidities, pain management issues and his decreased functional status. Wound care has been consulted regarding his wound care management and Internal Medicine to assist with medical issues. ADDENDUM: He is on Eliquis for DVT prophylaxis. <ELECTRONICALLY SIGNED> By: Iggy Saavedra MD 01/21/20 0933 1219 [id number] Iggy Saavedra MD /nt
--- NOTE | 2020-01-21 09:34 | PLAN ---
[facility] [place] [address] REHAB UNIT PLAN OF CARE Name: SONJAKEON Wolf Room #: 506-1 [facility] IN M.R.#: [id number] Admission: 01/09/20 Attend Phys: Iggy Saavedra MD Discharge: 01/16/20 Date of : 89 Report #: [id number] THIS REPORT FOR: //name// CC: Iggy Saavedra [facility] unknown DATE OF SERVICE: 01/11/2020 OVERALL PLAN OF CARE The overall plan of care is based on the preadmission screen, post-admission physician evaluation and information garnered from therapy assessments. The patient has been afebrile. Blood pressure is running in the 151/100 range. Nursing has been working on his wound care with his external fixator and monitoring his pin sites. Transfers are min assist. He is hopping min assist 15 feet with a front-wheeled walker. He is working on upper extremity strengthening exercises as well as functional mobility and OT. ASSESSMENT: 1. Medical complexity with generalized debilitation. 2. Left leg fracture, status post external fixator, nonweightbearing left lower extremity. 3. Left popliteal artery injury, status post repair with wound VAC. 4. Left foot pain with compartment syndrome, status post fasciotomy on 01/03/2020. 5. Question of possible complex regional pain syndrome. 6. Lupus nephritis. 7. History of pulmonary embolism, on anticoagulation. 8. Hypertension. PLAN: 1. Estimated length of stay is probably at least 5-10 days and potentially longer depending upon his needs. 2. Medical prognosis is reasonably good. 3. Anticipated interventions includes the interdisciplinary acute inpatient rehabilitation program. 4. Anticipated functional outcomes would be for the patient to become independent with basic transfers and be able to return back to the home setting. 5. Discharge destination would be back home with his roommate. There are no stairs. His roommate is apparently working from home and may be able to be of some assistance. 6. Expected therapy by discipline includes PT and OT 1 to 1-1/2 hours per day [address] [address] REHAB UNIT PLAN OF CARE Name: KEON CASILLAS Room #: 506-1 [facility] IN ..#: [id number] Admission: 01/09/20 Attend Phys: Iggy Saavedra MD Discharge: 01/16/20 Date of : 88 Report #: [id number] each five days a week throughout the duration of the acute inpatient rehabilitation stay. <ELECTRONICALLY SIGNED> By: Iggy Saavedra MD 01/21/20 0934 1206 0130 Iggy Saavedra MD /nt
== END 2020-01-16 10:45 | disposition home health service (06) | DRG 947 ==
PROVIDERS: Nurse Practitioner; Nurse Practitioner Family; ADMIT Physical Medicine & Rehabilitation; ATTEND Physical Medicine & Rehabilitation
DX: R53.81 Other malaise (principal); S85.002A Unspecified injury of popliteal artery, left leg, initial encounter; E43 Unspecified severe protein-calorie malnutrition; G90.50 Complex regional pain syndrome I, unspecified; N17.9 Acute kidney failure, unspecified; S83.105A Unspecified dislocation of left knee, initial encounter; I77.89 Other specified disorders of arteries and arterioles; F43.23 Adjustment disorder with mixed anxiety and depressed mood; I12.9 Hypertensive chronic kidney disease with stage 1 through stage 4 chronic kidney disease, or unspecified chronic kidney disease; N18.9 Chronic kidney disease, unspecified; M32.14 Glomerular disease in systemic lupus erythematosus; Y93.39 Activity, other involving climbing, rappelling and jumping off; Z86.718 Personal history of other venous thrombosis and embolism; Z86.711 Personal history of pulmonary embolism; Z79.01 Long term (current) use of anticoagulants; Y30.XXXA Falling, jumping or pushed from a high place, undetermined intent, initial encounter; Z68.30 Body mass index [BMI] 30.0-30.9, adult
CPT/HCPCS: 10112

== ENCOUNTER 2021-02-13 18:49 | Inpatient (IN) | payer OTHER ==
[~2021-02-13] VITALS: Ht 177.8 cm; Wt 113.4 kg
[~2021-02-13 18:49] MED LIST changes: +BACLOFEN 10MG T10 MG PO; +COLACE100 MG PO; +DORYX MPC120 MG PO; +ELIQUIS5 MG PO; +MYCOPHENOLATE500 MG PO; +NEURONTIN 300M300 M2 PO; +NEURONTIN300 MG PO; +NEURONTIN600 MG PO; +OXYCONTIN20 M1 PO; +PERCOCET 10-321 EAC1 PO; +PERCOCET 10-321 EACH PO; +PLAQUENIL200 MG PO; +PREDNISONE 5 MG5 M1 PO; +VERAPAMIL ER120 MG PO
[2021-02-13 18:57] VITALS: BP 125/91
[2021-02-13 19:28] LABS: ABSOLUTE NEUTROPHILS 5.3 thou/uL (1.4-8.2); BASOPHILS 0.9 % (0.0-2.0); EOSINOPHILS 0.1 % (0.0-3.0); HEMATOCRIT 53.8 % (42.0-52.0); HEMOGLOBIN 17.8 gm/dL (14.0-18.0); LYMPHOCYTES 18.4 % (24.0-44.0); MCHC 33.1 g/dL (28.0-37.0); MCV 84.8 fL (80.0-100.0); MONOCYTES 8.6 % (1.0-8.0); PLATELET COUNT 158 thou/uL (150-400); RBC 6.35 mil/uL (4.50-6.00); RDW 14.7 % (10.5-14.5); WBC 7.4 thou/uL (4.0-11.0)
[2021-02-13 19:37] LABS: CALCIUM 9.1 mg/dL (8.5-10.1); POTASSIUM 4.7 mmol/L (3.5-5.1)
[2021-02-13 19:43] LABS: ALBUMIN 3.8 g/dL (3.4-5.0); TOTAL BILIRUBIN 0.6 mg/dL (0.2-1.0); TOTAL PROTEIN 7.8 g/dL (6.4-8.2)
[2021-02-13 23:14] VITALS: BP 131/93
[2021-02-13 23:46] VITALS: BP 122/83
[2021-02-14] VITALS (7 sets, daily range): BP systolic 130–153; BP diastolic 78–107
[2021-02-14] MEDS ORDERED: CATAPRES0.2 MG PO (00:50)
[2021-02-14] MEDS ORDERED: GABAPENTIN600 M1 PO (00:52)
[2021-02-14] MEDS ORDERED: RAYOS5 MG PO (00:54)
[2021-02-14] MEDS ORDERED: DIPHENHIST50 MG PO (00:56)
[2021-02-14] MEDS ORDERED: AMITRIPTYLINE H25 M3 PO (00:56)
[2021-02-14 02:10] LABS: URINE BILIRUBIN NEGATIVE (Negative); URINE BLOOD 1+ (Negative); URINE CLARITY CLEAR; URINE COLOR YELLOW; URINE GLUCOSE-RANDOM* NEGATIVE (Negative); URINE KETONES NEGATIVE (Negative); URINE LEUKOCYTES-REFLEX NEGATIVE (Negative); URINE NITRITE-REFLEX NEGATIVE (Negative); URINE PROTEIN (DIPSTICK) 2+ (Negative); URINE UROBILINOGEN 0.2 E.U./dl (0.2-1.0)
[2021-02-14 02:20] LABS: CASTS None Seen /LPF (None Seen); MUCUS 0-3 Light strn/LPF (None Seen); SQUAMOUS 4-10 Moderate /LPF (0-3)
[2021-02-14 02:21] LABS: BACTERIA-REFLEX 1-9 Few /HPF (None Seen); CRYSTALS None Seen /LPF (None Seen); URINE RBC 1-2 Rare /HPF (NONE SEEN); URINE WBC-REFLEX 6-15 Few /HPF (0-5)
[2021-02-14 04:41] LABS: CREATININE 3.9 mg/dL (0.7-1.3); POTASSIUM 4.2 mmol/L (3.5-5.1)
--- NOTE | 2021-02-14 06:12 | NUR ---
Arrived from ER around 0030. Tolerating room air well with O2 sat in the mid 90's. He reported shortness of breath with exertion and has SUPERVISOR CYTOLOGY cough. Elevated temp upon arrival on the floor at 102.5. Requested pain med and nausea med. Hydrocodone and zofran given with some relief. Temp this am 99.5 orally. Ambulated to bathroom x 1 and had loose bm. Med rec completed. Refused SCD's.
[2021-02-14 11:38] LABS: PROT/CREAT RATIO 0.6; URINE CREATININE-RANDOM* 163.7 mg/dL; URINE PROTEIN-RANDOM* 104.1 mg/dL (<11.9)
--- NOTE | 2021-02-14 16:27 | NUR ---
RN ASSUMED PT'S CARE AT 0700AM, PT IS A&OX4, PT IS ON ROOM AIR , PT'S VS ARE STABLE ,BUT PT STILL HAS DIARRHEA, STOOL HAS SENT LAB TO CHECK C-DIFF , PT 'S PAIN AND N/V CAN CONTROL BY MEDICATIONS, PT CAN GET UP TO BATHROOM WITHOUT ASSIST, PT HAS STARTED TO TREAT COVID MEDICATIONS.
[2021-02-15 04:33] VITALS: BP 173/118
--- NOTE | 2021-02-15 05:03 | HC ---
[facility] [place] [address] CONSULTATION Name: KEON CASILLAS Room #: 358-P ADM IN .R.#: [id number] Admission: 02/13/21 Attend Phys: Serafin Pearson MD Discharge: Date of : 89 Report #: [id number] THIS REPORT FOR: cc: FAM - Family physician unknown FAM - Family physician unknown Claudy Silver MD ~ DATE OF SERVICE: 02/14/2021 INFECTIOUS DISEASE CONSULTATION ATTENDING PHYSICIAN: Dr. Pearson. REASON FOR EVALUATION: COVID-19 infection. The patient has significant underlying medical history given his age including immunosuppressive therapy. HISTORY OF PRESENT ILLNESS: Chart reviewed and the patient examined. This is a 30-year-old with known history of systemic lupus erythematosus and nephrotic syndrome with renal failure, who does require combination immunosuppressive therapy, had an illness primarily involving nausea with emesis and diarrhea. Did have associated dyspnea that has been problematic as well, also noted fevers. He was evaluated and was found to have a positive COVID test on the day of admission as an outpatient. He ____ in the ER, found to have a creatinine of 4.0. Interestingly, albumin of 3.8. Lactic acid 1.5. Chest x-ray showed mild patchy bibasilar atelectasis and pneumonitis. Procalcitonin 1.68. Urinalysis showed moderate pyuria. Blood cultures collected negative thus far. He did have a fever subsequent to his admission overnight to 102.8 with little change in his pulse, started empirically on therapy with Zosyn and vancomycin. He is generally lucid at this point. He is still having a significant gastrointestinal distress. ALLERGIES: None known. CURRENT MEDICATIONS: Include prednisone, hydroxychloroquine, apixaban, pantoprazole, hydrocodone, also takes CellCept as well. PAST MEDICAL HISTORY: Systemic lupus erythematosus, nephrotic syndrome, lupus nephritis, hypertension, pulmonary embolus. SOCIAL HISTORY: Nonsmoker, occasional ethanol, no illicit drug use. FAMILY HISTORY: Noncontributory. REVIEW OF SYSTEMS: Otherwise, unremarkable. Noted above. Does have some mild dyspnea. [facility] [address] [place] [address] CONSULTATION Name: KEON CASILLAS Room #: 358-P [facility] IN ..#: [id number] Admission: 02/13/21 Attend Phys: Serafin Pearson MD Discharge: Date of : 89 Report #: [id number] PHYSICAL EXAMINATION: GENERAL: He appears fairly well nourished, in moderate distress. He is generally lucid. He is not requiring supplemental oxygen. VITAL SIGNS: Temperature max 102.8, more recently 99.6, pulse 94, respirations 18, blood pressure 131/78. SKIN: Warm, dry, no rashes. HEENT: Normocephalic. Extraocular muscles intact. NECK: Supple. LUNGS: Few crackles at the bases. HEART: Borderline tachycardic, regular. I do not appreciate a murmur. ABDOMEN: Mildly distended, somewhat tender. EXTREMITIES: There is no overt peritoneal sign. GENITOURINARY AND RECTAL: Deferred. LABORATORY DATA: Blood cultures sterile thus far. Most recent electrolytes, sodium 138, potassium 4.2, chloride 103, bicarbonate is 19, anion gap of 16, BUN and creatinine 37 and 3.9, glucose 97, estimated GFR of 22. Urinalysis, 6-15 white cells. ProBNP of 88. Positive coronavirus test. Procalcitonin 1.68. Ferritin 243. Chest x-ray as described above. Lactic acid 1.5. ASSESSMENT AND PLAN: COVID-19 infection, complicated by some pneumonitis, also gastrointestinal related complaints with nausea, emesis and diarrhea in setting of perhaps acute on chronic renal failure. Agree with empiric antibacterial therapy. Certainly at risk given his immunosuppression of secondary bacterial infectious complications. ____ candidate for remdesivir. Now, we will give Actemra, ivermectin as well as vitamin therapy. He is on corticosteroids chronically. We will need to increase ____ dosing. He remains quite tenuous. Continue to monitor expectantly, at risk for complications. <ELECTRONICALLY SIGNED> By: Claudy Silver MD 02/15/21 0503 0933 1959 Claudy Silver MD /nt
--- NOTE | 2021-02-15 05:10 | NUR ---
UPON INTIAL ASSESSMENT, PT C/O N/V/D AND GENERALIZED PAIN. PRN ZOFRAN DID NOT HELP WITH HIS N/V. THIS RN SPOKE WITH ABRAM LEE OPERATIONS ADMINISTRATIVE ASSISTANT HEAD START TEACHER FOR HOSPITALIST. ORDERS RECEIVED. IMODIUM AND COMPAZINE GIVEN. PT STATED DIARRHEA STOPPED AND N/V IMPROVED GREATLY. RESTARTED HOME BP MEDICATIONS PER PROVIDER ORDER FOR HTN. PT STATED HE WAS ABLE TO SLEEP PART OF THE NIGHT. PT FEBRILE THIS MORNING. TYLENOL GIVEN. PROGRESSING SLOWLY TOWARD POC GOALS. WILL MONITOR FURTHER.
[2021-02-15 06:22] VITALS: BP 156/103
[2021-02-15 06:24] LABS: CREATININE 2.8 mg/dL (0.7-1.3); PHOSPHORUS 3.4 mg/dL (2.5-4.9); POTASSIUM 4.8 mmol/L (3.5-5.1)
--- NOTE | 2021-02-15 07:19 | NUR ---
AROUND 0615, PT CALLED FOR NURSE AND STATED HE WANTED TO GO HOME IMMEDIATELY. HE APPEARED ANXIOUS AND TEARFUL. PT DENIED ANY SPECIFIC TRIGGER FOR WANTING TO GO HOME. HE STATED HE WANTED TO GO HOME AND RECOVER IN HIS OWN BED. PT EDUCATED THAT IT WAS NOT RECOMMENDED HE BE DISCHARGED DUE TO HIS ELEVATED RENAL FUNCTION AND INFECTION. PT STATED HE UNDERSTOOD BUT STILL WANTED TO LEAVE. NOTIFIED TELEPHONE MAINTAINER ABRAM LEE OF PT'S REQUEST. ABRAM TALKED TO PT. PT WAS OFFERED MEDICATION FOR ANXIETY, BUT REFUSED. PT'S BROTHER WORKS HERE RESOURCE MANAGER. HE TALKED TO PT BUT PT STILL WANTED TO LEAVE. IV REMOVED. TELE MONITOR REMOVED. PT SIGNED AMA PAPERWORK AND LEFT WITH ALL BELONGINGS. UPDATED AGUILAR VALVERDE. STUNT WOMAN NOTIFIED WELL.
== END 2021-02-15 06:45 | disposition left against medical advice (07) | DRG 177 ==
LOC: ER 18:49 → EROBS 21:39 → 3W 21:39
PROVIDERS: Hospitalist; Nurse Practitioner Family; ADMIT Hospitalist; ATTEND Hospitalist
PROC: XW033H5 Introduction of Tocilizumab into Peripheral Vein, Percutaneous Approach, New Technology Group 5 (ICD-10-PCS; principal; 2021-02-14)
DX: U07.1 COVID-19 (principal); J12.82 Pneumonia due to coronavirus disease 2019; N17.9 Acute kidney failure, unspecified; E86.0 Dehydration; M32.9 Systemic lupus erythematosus, unspecified; M32.14 Glomerular disease in systemic lupus erythematosus; I12.9 Hypertensive chronic kidney disease with stage 1 through stage 4 chronic kidney disease, or unspecified chronic kidney disease; N18.30 Chronic kidney disease, stage 3 unspecified; Z53.21 Procedure and treatment not carried out due to patient leaving prior to being seen by health care provider; Z79.01 Long term (current) use of anticoagulants; Z86.711 Personal history of pulmonary embolism; Z79.899 Other long term (current) drug therapy
CPT/HCPCS: 10879